=== PATIENT | female | born 1975 | race Caucasian/White ===

== ENCOUNTER 2016-06-21 14:52 | Inpatient (IN) | payer BC ==
[~2016-06-21] VITALS: Ht 188 cm; Wt 125.9 kg
[~2016-06-21 14:52] MED LIST: BENADRYL25 M2 PO; COLACE 100100 MG/CAP PO; MOTRIN 600600 MG/TAB PO; MULTIVITAMIN FO1 CAP PO; NEWMANS TOP; NEXIUM 20MG20 MG PO; PRENATAL1 TA7 PO; ZOLOFT 25MG25 MG PO; ZOLOFT 50MG50 MG
[2016-07-25] MEDS ORDERED: VITAMIND3 5000 (08:54)
[2016-07-25] MEDS ORDERED: COLACE 100100 MG/CAP PO (08:55)
[2016-07-25] MEDS ORDERED: PRIL40 PO (08:55)
[2016-08-01] VITALS (54 sets, daily range): BP systolic 88–152; BP diastolic 52–88; PULSE 16–99; TEMP 97.3–98.2
[2016-08-01] MEDS ORDERED: BENADRYL25 M2 PO (07:33)
[2016-08-01 08:16] LABS: BASO % 0.1 % (0.0-2.0); EOS # 0.1 (0.0-0.7); EOS % 1.8 % (0-4.0); GRAN # 5.5 (1.4-6.5); HEMATOCRIT 38.4 % (37.0-47.0); MEAN CELL VOLUME 87 fl (80.0-100.0); MEAN CORPUSCULAR HEMOGLOBIN 30 pg (27.0-31.0); MEAN CORPUSCULAR HGB CONC 34 g/dl (33.0-37.0); MONO # 0.3 (0.1-0.6); MONO % 3.7 % (1.7-9.3); PLATELET COUNT 219 K/mm3 (130-400); RED BLOOD COUNT 4.41 M/mm3 (4.10-5.30); REDCELL DISTRIBUTION WIDTH-CV 13.9 % (11.5-14.5); WHITE BLOOD COUNT 7.9 K/mm3 (4.8-10.8)
[2016-08-02 04:00] VITALS: BP 121/43; PULSE 86; TEMP 98.3
[2016-08-02 07:27] VITALS: BP 115/57; PULSE 87; TEMP 97.7
[2016-08-02 07:31] LABS: HEMATOCRIT 38.3 % (37.0-47.0); HEMOGLOBIN 12.7 g/dl (12.5-16.0)
[2016-08-02 15:40] VITALS: BP 121/60; PULSE 81; TEMP 98.9
[2016-08-02 19:05] VITALS: BP 125/64; PULSE 78; TEMP 97.5
[2016-08-03 07:15] VITALS: BP 133/72; PULSE 81; TEMP 98.1
[2016-08-03] MEDS ORDERED: SENOKOT S 50 MG1 TAB PO (11:06)
[2016-08-03] MEDS ORDERED: IBU600 MG PO (11:06)
[2016-08-03 15:16] VITALS: BP 142/70; PULSE 81; TEMP 98.3
== END 2016-08-03 17:55 | disposition home or self-care (01) | DRG 775 ==
LOC: LDR 08-01 06:42 → OB 08-02 → EDSTATUS 08-06 06:41 → LDRO 08-06 08:26
PROVIDERS: Obstetrics & Gynecology
PROC: 10E0XZZ Delivery of Products of Conception, External Approach (ICD-10-PCS; principal; 2016-08-01)
PROC: 0KQM0ZZ Repair Perineum Muscle, Open Approach (ICD-10-PCS; 2016-08-01)
PROC: 3E033VJ Introduction of Other Hormone into Peripheral Vein, Percutaneous Approach (ICD-10-PCS; 2016-08-01)
DX: O35.8XX0 Maternal care for other (suspected) fetal abnormality and damage, not applicable or unspecified (principal); O99.824 Streptococcus B carrier state complicating childbirth; O09.523 Supervision of elderly multigravida, third trimester; O70.1 Second degree perineal laceration during delivery; Z3A.39 39 weeks gestation of pregnancy; Z37.0 Single live birth
CPT/HCPCS: J2540; J2590; J2795; J7120

== ENCOUNTER 2016-07-25 08:27 | Outpatient (CLI) | payer BC ==
[~2016-07-25] VITALS: Ht 188 cm; Wt 125.9 kg
[2016-07-25] VITALS (10 sets, daily range): BP systolic 115–145; BP diastolic 58–74; PULSE 78–775; TEMP 98.9
[2016-07-25] MEDS ORDERED: VITAMIND3 5000 (08:54)
[2016-07-25] MEDS ORDERED: PRIL40 PO (08:55)
[2016-07-25] MEDS ORDERED: COLACE 100100 MG/CAP PO (08:55)
[2016-07-25 09:17] LABS: PH 6 (5-8); URINE APPEARANCE Hazy; URINE BACTERIA None Seen /hpf; URINE BILIRUBIN Negative (NEGATIVE); URINE BLOOD Negative (NEGATIVE); URINE COLOR Yellow; URINE GLUCOSE Negative (NEGATIVE); URINE KETONE Negative (NEGATIVE); URINE RBC None Seen /hpf; URINE UROBILINOGEN Negative (NEGATIVE)
[2016-07-25 10:31] LABS: BASO % 0.3 % (0.0-2.0); EOS # 0.1 (0.0-0.7); GRAN % 72.2 % (42.2-75.2); HEMATOCRIT 36.9 % (37.0-47.0); HEMOGLOBIN 12.4 g/dl (12.5-16.0); LYMPH # 1.5 (1.2-3.4); LYMPH % 21.1 % (20.0-51.0); MEAN CELL VOLUME 87 fl (80.0-100.0); MEAN CORPUSCULAR HEMOGLOBIN 29 pg (27.0-31.0); MEAN CORPUSCULAR HGB CONC 34 g/dl (33.0-37.0); MEAN PLATELET VOLUME 9.7 fl (7.4-10.4); MONO # 0.3 (0.1-0.6); PLATELET COUNT 193 K/mm3 (130-400); RED BLOOD COUNT 4.23 M/mm3 (4.10-5.30); REDCELL DISTRIBUTION WIDTH-CV 13.7 % (11.5-14.5); WHITE BLOOD COUNT 6.9 K/mm3 (4.8-10.8)
[2016-07-25 10:44] LABS: ADJUSTED CALCIUM 9.3 mg/dL (8.4-10.2); ALBUMIN 3.2 gm/dL (3.5-5.0); BILIRUBIN,TOTAL 0.5 mg/dL (0.0-1.0); CALCIUM 8.7 mg/dL (8.4-10.2); CREATININE, serum 0.62 mg/dL (0.52-1.25); POTASSIUM 3.6 mmol/L (3.4-5.0); TOTAL PROTEIN 6.1 gm/dL (6.4-8.2)
== END 2016-07-25 11:30 | disposition home or self-care (01) ==
LOC: LDRO 08:27 → LDR 08:30 → LDRO 11:30
PROVIDERS: Obstetrics & Gynecology
DX: O26.893 Other specified pregnancy related conditions, third trimester (principal); R51 Headache; O35.0XX0 Maternal care for (suspected) central nervous system malformation in fetus, not applicable or unspecified; Z3A.38 38 weeks gestation of pregnancy
CPT/HCPCS: OP

== ENCOUNTER → 2016-09-07 | Outpatient (CLI) | payer BC ==
[~2016-09-07] MED LIST changes: +IBU600 MG PO; +PRIL40 PO; +SENOKOT S 50 MG1 TAB PO; +VITAMIND3 5000
[2016-09-07 15:44] LABS: HEMATOCRIT 39.7 % (37.0-47.0); HEMOGLOBIN 13.2 g/dl (12.5-16.0); MEAN CELL VOLUME 88 fl (80.0-100.0); MEAN CORPUSCULAR HEMOGLOBIN 29 pg (27.0-31.0); MEAN CORPUSCULAR HGB CONC 33 g/dl (33.0-37.0); MEAN PLATELET VOLUME 9.2 fl (7.4-10.4); PLATELET COUNT 225 K/mm3 (130-400); REDCELL DISTRIBUTION WIDTH-CV 12.9 % (11.5-14.5); WHITE BLOOD COUNT 8.4 K/mm3 (4.8-10.8)
[2016-09-07 15:58] LABS: ADJUSTED CALCIUM 8.8 mg/dL (8.4-10.2); ALBUMIN 3.9 gm/dL (3.5-5.0); BILIRUBIN,TOTAL 0.6 mg/dL (0.0-1.0); CALCIUM 8.7 mg/dL (8.4-10.2); CREATININE, serum 0.95 mg/dL (0.52-1.25); POTASSIUM 3.8 mmol/L (3.4-5.0); TOTAL PROTEIN 6.9 gm/dL (6.4-8.2)
== END ==
LOC: COL.LAB 15:14
PROVIDERS: Obstetrics & Gynecology
DX: R05 Cough (principal); R06.2 Wheezing

== ENCOUNTER → 2017-09-02 | Outpatient (CLI) | payer BC | LOC: MC.RAD 09:34 | DX: Z12.31 Encounter for screening mammogram for malignant neoplasm of breast (principal) ==

== ENCOUNTER → 2018-09-15 | Outpatient (CLI) | payer BC | LOC: MC.RAD 09:55 | DX: Z12.31 Encounter for screening mammogram for malignant neoplasm of breast (principal) ==

== ENCOUNTER → 2019-07-27 | Outpatient (CLI) | payer BC | LOC: MC.RAD 08:51 | DX: N60.02 Solitary cyst of left breast (principal) ==

== ENCOUNTER → 2019-09-21 | Outpatient (CLI) | payer BC | LOC: MC.RAD 09:48 | DX: Z12.31 Encounter for screening mammogram for malignant neoplasm of breast (principal) ==

== ENCOUNTER → 2020-09-26 | Outpatient (CLI) | payer BC | LOC: MC.RAD 11:24 | DX: Z12.31 Encounter for screening mammogram for malignant neoplasm of breast (principal); N64.89 Other specified disorders of breast ==

== ENCOUNTER → 2020-10-03 | Outpatient (CLI) | payer BC | LOC: MC.RAD 13:45 | DX: N63.10 Unspecified lump in the right breast, unspecified quadrant (principal); N60.01 Solitary cyst of right breast; R92.2 Inconclusive mammogram ==

== ENCOUNTER → 2020-12-05 | Outpatient (CLI) | payer BC | LOC: MC.RAD 10:00 | DX: N63.10 Unspecified lump in the right breast, unspecified quadrant (principal) ==

== ENCOUNTER → 2021-05-15 | Outpatient (CLI) | payer BC | LOC: DIA.ED 10:28 | DX: E11.65 Type 2 diabetes mellitus with hyperglycemia (principal); Z79.84 Long term (current) use of oral hypoglycemic drugs; E78.5 Hyperlipidemia, unspecified; I10 Essential (primary) hypertension | CPT/HCPCS: G0108 ==

== ENCOUNTER → 2021-06-12 | Outpatient (CLI) | payer BC | LOC: MC.RAD 11:00 | DX: N60.01 Solitary cyst of right breast (principal) ==